=== PATIENT | male | born 1980 | race Caucasian/White ===

== ENCOUNTER 2022-05-01 09:04 | Day surgery (SDC) | payer OTHER, SELFPAY ==
[2022-05-01] VITALS (12 sets, daily range): BP systolic 108–121; BP diastolic 74–89; PULSE 39–75; RESP 16–18; TEMP 36.3–36.6; O2SAT 98–100; BMI 28.3
[2022-05-01] MEDS: OXYMETAZOLINE 0.05% NASAL SPRAY 2 SPRAY NOSTRIL-B (08:59)
[2022-05-01] MEDS: LACTATED RINGERS 1000 ML 1,000 ML 100 ML IV (09:00)
[2022-05-01] MEDS: SODIUM CHLORIDE 0.9 % (FLUSH) 10 ML SYRINGE IVF (10:15)
[2022-05-01] MEDS: ETHYL CHLORIDE 116 ML SPRAY 1 APPLIC TOPICAL (10:15)
--- NOTE | 2022-05-01 10:57 | W.PM.ENTPROC ---
Procedure Note Date of procedure: 05/01/22 Procedure: Preoperative diagnosis deviated septum nasal obstruction inferior turbinate hypertrophy, bilateral middle turbinate silas bullosa, rhinogenic headache. Postoperative diagnosis same The patient was prepped and draped in usual fashion under general endotracheal anesthesia. The nose was injected and decongested. A right hemitransection incision was made bilateral anterior and posterior tunnels were created. A vertical incision was made the cartilage from the bone. The posterior deflected portions of nasal nasal septum were removed 2 large pieces of bone were trimmed and returned to the posterior intraseptal space. The hemitransection incision was closed with 2 4-0 chromic sutures. A stab incision was made in the anterior head of the right inferior turbinate a tunnel created with a Beauregard dissector. The Benitez forceps were used for a conservative anterior submucous resection. 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 This was repeated on the left side in identical fashion. The remainder procedures on the available assistance of a 0 degree endoscope. The right middle turbinate silas bullosa was incised with a 15 blade anteriorly in the incision completed through the silas is inferior portion with a turbinate scissors. The turbinate was then crushed with a [place] forceps. This was repeated on the left side in identical fashion. Silastic stents were secured with 3-0 nylon. A Merocel pack was trimmed lengthwise coated in Bactroban and placed beneath the middle turbinates on both sides. The patient tolerated procedure well was taken to recovery in satisfactory condition blood loss during procedure was less than 20 mL. Surgeon: Henrique Maria MD
--- NOTE | 2022-05-01 11:05 | W.ANESCHARGE ---
Anesthesia Charges Start Date/Time Anesthesia Start Date: 05/01/22 Anesthesia Start Time: 10:20 Stop Date/Time Anesthesia Stop Date: 05/01/22 Anesthesia Stop Time: 11:05 Summary Emergency: No
--- NOTE | 2022-05-01 11:51 | W.ANESCHARGE ---
Anesthesia Charges Start Date/Time Anesthesia Start Date: 05/01/22 Anesthesia Start Time: 10:20 Stop Date/Time Anesthesia Stop Date: 05/01/22 Anesthesia Stop Time: 11:05 Summary Emergency: No
[2022-05-01] MEDS: IBUPROFEN 200 MG TABLET PO (11:56)
== END 2022-05-01 12:45 | disposition home or self-care (01) ==
PROVIDERS: Visit Provider Otolaryngology
PROC: (CPT 31231; principal; 2022-05-01 10:15)
DX: J34.2 Deviated nasal septum (principal); J34.3 Hypertrophy of nasal turbinates; R51.9 Headache, unspecified
CPT/HCPCS: 30520; 30140; 31240; 00160; A9270; J0330; J1100; J2250; J2405; J2704; J3010; J7120